=== PATIENT | male | born 1955 | race African-American/Black ===

== ENCOUNTER 2020-11-11 20:58 | Emergency (ER) | payer OTHER, SELFPAY ==
[2020-11-11 21:08] VITALS: BP 155/86; PULSE 92; RESP 18; TEMP 36.6; O2SAT 99; BMI 31.0
[2020-11-11 22:00] VITALS: PULSE 68; RESP 16; O2SAT 98
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
--- NOTE | 2020-11-11 22:56 | PC.NURSE ---
PATIENT REFUSING BLOOD WORK ASKING TO LEAVE AGAINST MEDICAL ADVICE. AMA FORM SIGNED AND WITNESSED BY THIS RN AND PROVIDER MADDY CENTENO. PATIENT STATING FEELING MUCH BETTER WITH NO DISTRESS NOTED. GERA COUGH OR SOB, OR DIZZINESS. SYMPTOMS FULLY RESOLVING. AMBULATING STEADILY.
== END 2020-11-11 23:03 | disposition left against medical advice (07) ==
PROVIDERS: Emergency Provider Emergency Medicine; PCP Internal Medicine
DX: T58.91XA Toxic effect of carbon monoxide from unspecified source, accidental (unintentional), initial encounter (principal); R06.02 Shortness of breath; X58.XXXA Exposure to other specified factors, initial encounter
CPT/HCPCS: 99282; 99284

== ENCOUNTER 2024-06-18 02:21 | Emergency (ER) | payer OTHER, SELFPAY ==
--- NOTE | ~2024-06-18 | XR_ITS ---
EXAMINATION: XR CHEST CLINICAL INFORMATION: Chest pain COMPARISON: 02/03/2017 TECHNIQUE: Frontal view of the chest was obtained. FINDINGS: The lungs are clear with no focal consolidation. No evidence of pneumothorax, pulmonary edema, or pleural effusions. Cardiac size is within normal limits. Calcification is present at the aortic arch. No acute osseous findings are seen. XR/XR chest 1V IMPRESSION: No acute cardiopulmonary findings. Electronically signed by: Antonino Manzano MD 06/18/2024 03:24 AM EDT
--- NOTE | 2024-06-18 02:25 | ECG_ITS ---
Test Reason : CP Blood Pressure : / mmHG Vent. Rate : 086 BPM Atrial Rate : 086 BPM P-R Int : 182 ms QRS Dur : 102 ms QT Int : 364 ms P-R-T Axes : 052 013 031 degrees QTc Int : 435 ms Sinus rhythm with frequent Premature ventricular complexes Possible Left atrial enlargement Minimal voltage criteria for LVH, may be normal variant ( Damaso product ) Nonspecific T wave abnormality Abnormal ECG When compared with ECG of 03-FEB-2017 02:13, Premature ventricular complexes are now Present Nonspecific T wave abnormality is now Present Referred By: Jenny Francis Electronically Signed By:MARTINE PANDEY
[2024-06-18 02:27] VITALS: BP 200/98; PULSE 93; RESP 18; TEMP 36.6; O2SAT 99; BMI 31.3
--- NOTE | 2024-06-18 02:37 | MHC.EDTECH ---
Patient brought in from triage,changed into hospital attire,EKG taken per order and signed by provider,placed patient on the workflow developer,vitals taken.
[2024-06-18 02:44] LABS: MANUAL DIFF FLAG NO
[2024-06-18 02:45] LABS: Basophils Absolute Auto 0.1 X10*3/uL (0.0-0.2); Basophils Percent Auto 0.7 % (0-2); Eosinophils Absolute Auto 0.2 X10*3/uL (0.0-0.4); Hematocrit 46.2 % (42.0-52.0); Hemoglobin 16.2 g/dl (14.0-18.0); Imm Gran Abs Auto 0.05 X10*3/uL (0.00-0.03); Imm Gran Pct Auto 0.6 % (0.0-0.4); Lymphocytes Absolute Auto 2.8 X10*3/uL (1.2-4.9); Lymphocytes Percent Auto 32.6 % (20-40); Mean Corpuscular HGB Conc 35.1 g/dl (31.0-36.0); Mean Corpuscular Hemoglobin 31.8 pg (27.0-33.0); Mean Corpuscular Volume 90.8 fL (80.0-98.0); Mean Platelet Volume 8.9 fL (9.4-12.4); Monocytes Absolute Auto 0.8 X10*3/uL (0.1-1.2); Monocytes Percent Auto 9.6 % (2-11); Neutrophils Absolute Auto 4.7 x10*3/uL (2.0-8.3); Neutrophils Percent Auto 54.5 % (45-73); Platelet Count 187 X10*3/uL (160-400); Red Blood Count 5.09 X10*6/uL (4.60-5.80); Red Cell Distribution Width 13.2 % (11.0-16.0); White Blood Count 8.6 X10*3/uL (4.8-10.8)
[2024-06-18 02:51] LABS: INTERNATIONAL NORM RATIO 0.9 (0.9-1.1); Prothrombin Time 11.1 SEC (11.1-13.3)
[2024-06-18 03:00] VITALS: BP 196/90; PULSE 83; RESP 20; O2SAT 98
[2024-06-18 03:01] VITALS: BP 189/90; PULSE 83
--- NOTE | 2024-06-18 03:02 | MHC.EDTECH ---
Patient ambulated to the bathroom with a steady gait,UDS obtained and sent to lab,patient's BP is elevated 189/90 at this time,RN is aware,call gillespie in reach
[2024-06-18 03:03] LABS: Alanine Aminotransferase 20 U/L (0-40); Alkaline Phosphatase 99 U/L (39-117); Anion Gap 16 (12-20); Aspartate Amino Transferase 22 U/L (5-37); Bilirubin Direct 0.1 mg/dL (0.0-0.5); Bilirubin Total 0.4 mg/dL (0.0-1.0); Blood Urea Nitrogen 19 mg/dL (9-16); Calcium 10.1 mg/dL (8.4-10.2); Carbon Dioxide 22 mmol/L (22-29); Chloride 108 mmol/L (96-108); Creatinine Clr Calc Pharmacy 64.5; Estimated Glomerular Filt Rate 57; Glucose Random 127 mg/dL (60-115); Potassium 4.2 mmol/L (3.3-5.1); Sodium 142 mmol/L (135-145); Total Protein 7.2 g/dL (6.5-8.0)
[2024-06-18 03:08] LABS: B Type Natriuretic Peptide 21 pg/mL (<100)
[2024-06-18 03:09] LABS: Troponin-I High Sensitivity < 2.7 ng/L (<3.5-35.0)
[2024-06-18 03:17] LABS: Ethanol 13 mg/dL
[2024-06-18 03:19] LABS: Amphetamine Screen Urine Not Detected (Not Detect); Barbiturates, Urine Not Detected (Not Detect); Benzodiazepines Screen Urine Not Detected (Not Detect); Buprenorphine Scr Not Detected (Not Detect); Cannabinoid Screen Urine Not Detected (Not Detect); Cocaine Screen Urine Not Detected (Not Detect); Fentanyl, urine Not Detected (Not Detect); Methadone Screen, Urine Not Detected (Not Detect); Opiate Screen Urine Not Detected (Not Detect); Oxycodone Screen Urine Not Detected (Not Detect); Phencyclidine Screen Urine Not Detected (Not Detect)
--- NOTE | 2024-06-18 03:40 | ED_ITS ---
HPI - Chest Pain General Chief Complaint: Chest Pain Stated Complaint: Chest Pains Time Seen by Provider: 06/18/24 03:26 Source: patient and family Mode of arrival: ambulatory Limitations: no limitations History of Present Illness ED Provider: Dr. Jenny Francis HPI narrative: Patient comes to the emergency room complaining of chest pressure that started approximately 2-1/2 hours ago. Patient states that he was sleeping a started feeling palpitations Related Data Allergies Allergy/AdvReac Type Severity Reaction Status Date / Time No Known Allergies Allergy Verified 06/18/24 02:29 [facility] Social History Social History Alcohol intake: never Smoked in Last 30 Days: No Use of substances other than those prescribed or required for medical reasons: No Advance Directives: No Advance Directives Information Provided: Yes Do you have a plan to hurt others: No Plan Physical Exam 2 Vital Signs: Vital Signs: Last Vital Signs Temp 98.7 F 06/18/24 03:42 Pulse 80 06/18/24 03:42 Resp 16 06/18/24 03:42 BP 137/84 06/18/24 03:42 Pulse Ox 98 06/18/24 03:42 O2 Del Method Room Air 06/18/24 03:42 BMI result Body Mass Index 31.3 Medications Administered Discontinued Medications Generic Name Dose Route Start Last Admin Trade Name Freq PRN Reason Stop Dose Admin Calcium Carbonate 1,500 mg 06/18/24 04:42 06/18/24 04:55 Calcium Carbonate 750 Mg Tab.Chew PO 06/18/24 04:43 1,500 mg ONCE ONE Administration Medical Decision Making Medical Decision Making [facility] Narrative: My interpretation of EKG: Normal sinus rhythm, heart rate 86, no ST segment depression or elevation, no T-wave inversion, QTC 435 -troponin x2 negative. -patient as per Tums, resolved his symptoms. -patient's pain unlikely to be of cardiac origin, probably GERD versus esophageal spasm. -patient feeling better at this time. No chest pain or pressure. 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 Differential Diagnosis Differential Diagnoses: The differential diagnosis associated with the presentation includes (As above) Admission/Observation Consideration of admission/observation: Escalation of care including admission/observation considered (Given patient's symptoms, observation was considered) Lab Data [facility] Lab Attestation statement: I reviewed the patient's lab results. 06/18/24 02:40 06/18/24 02:40 Labs: Lab Results 06/18/24 06/18/24 06/18/24 Range/Units 02:40 03:02 04:40 WBC 8.6 (4.8-10.8) X10*3/uL RBC 5.09 (4.60-5.80) X10*6/uL Hgb 16.2 (14.0-18.0) g/dl Hct 46.2 (42.0-52.0) % MCV 90.8 (80.0-98.0) fL MCH 31.8 (27.0-33.0) pg MCHC 35.1 (31.0-36.0) g/dl RDW 13.2 (11.0-16.0) % Plt Count 187 (160-400) X10*3/uL MPV 8.9 L (9.4-12.4) fL Immature Gran % (Auto) 0.6 H (0.0-0.4) % Neut % (Auto) 54.5 (45-73) % Lymph % (Auto) 32.6 (20-40) % [place] % (Auto) 9.6 (2-11) % Eos % (Auto) 2.0 (0-4) % Baso % (Auto) 0.7 (0-2) % Lymph # (Auto) 2.8 (1.2-4.9) X10*3/uL [place] # (Auto) 0.8 (0.1-1.2) X10*3/uL Eos # (Auto) 0.2 (0.0-0.4) X10*3/uL Baso # (Auto) 0.1 (0.0-0.2) X10*3/uL Abs Immat Gran (auto) 0.05 H (0.00-0.03) X10*3/uL Absolute Neuts (auto) 4.7 (2.0-8.3) x10*3/uL Absolute Nucleated RBC 0.000 (0.0-0.012) X10*3/uL Nucleated RBC % (auto) 0.0 (0.0-0.2) /100WBC PT 11.1 (11.1-13.3) SEC INR 0.9 (0.9-1.1) Sodium 142 (135-145) mmol/L Potassium 4.2 (3.3-5.1) mmol/L Chloride 108 (96-108) mmol/L Carbon Dioxide 22 (22-29) mmol/L Anion Gap 16 (12-20) BUN 19 H (9-16) mg/dL Creatinine 1.27 (0.5-1.4) mg/dL Estim Creat Clear Calc 64.5 Estimated GFR 57 Random Glucose 127 H (60-115) mg/dL Calcium 10.1 (8.4-10.2) mg/dL Magnesium 2.0 (1.6-2.6) mg/dL Total Bilirubin 0.4 (0.0-1.0) mg/dL Direct Bilirubin 0.1 (0.0-0.5) mg/dL AST 22 (5-37) U/L ALT 20 (0-40) U/L Alkaline Phosphatase 99 (39-117) U/L Troponin I High Sens < 2.7 < 2.7 (<3.5-35.0) ng/L B-Natriuretic Peptide 21 (<100) pg/mL Total Protein 7.2 (6.5-8.0) g/dL Albumin 4.0 (3.5-5.0) g/dL TSH 2.89 (0.32-4.0) uIU/mL Urine Opiates Screen Not Detected (Not Detect) Ur Buprenorphine Scrn Not Detected (Not Detect) ng/mL Ur Oxycodone Screen Not Detected (Not Detect) ng/mL Urine Methadone Screen Not Detected (Not Detect) ng/mL Urine Fentanyl Screen Not Detected (Not Detect) Ur Barbiturates Screen Not Detected (Not Detect) Ur Phencyclidine Scrn Not Detected (Not Detect) Ur Amphetamines Screen Not Detected (Not Detect) U Benzodiazepines Scrn Not Detected (Not Detect) Urine Cocaine Screen Not Detected (Not Detect) U Marijuana (THC) Screen Not Detected (Not Detect) Ethyl Alcohol 13 mg/dL Independent Interpretation I performed an independent interpretation of an: Plain X-Ray Radiology Impression Discussion of test interpretation with radiology: I have reviewed the radiologist's reading. Radiologist Impression: The lungs are clear with no focal consolidation. No evidence of pneumothorax, pulmonary edema, or pleural effusions. Cardiac size is within normal limits. Calcification is present at the aortic arch. No acute osseous findings are seen. XR/XR chest 1V IMPRESSION: No acute cardiopulmonary findings. Scores Heart Score History: -0- slightly suspicious ECG: -0- normal Age: -2- > or = 65 Risk factory: -0- no risk factors known Troponin: -0- < or = normal limit Score: 2 Risk: 1.7% Critical Care Time Critical Care Time Critical Care Time: Yes Total Critical Care Time: 45 Attestation: I have personally provided critical care time. Time includes review of lab data, radiology results, discussion with consultants, and monitoring for potential decompensation. Intervention performed as documented. Discharge Plan Discharge Clinical Impression: Atypical chest pain Patient Disposition: Home, Self-Care Instructions: Chest Pain (ED) Additional Instructions: Please follow-up with your primary care physician tomorrow. If you have any worsening or new symptoms, please return to the emergency room or call 911 Print Language: [place]
[2024-06-18 03:42] VITALS: BP 137/84; PULSE 80; RESP 16; TEMP 37.1; O2SAT 98
--- NOTE | 2024-06-18 04:15 | MHC.EDTECH ---
Hourly rounds and vitals completed,patient was given a cup of ice water per request,repeat labs will be drawn at 0440AM per providers request
[2024-06-18 04:18] LABS: TSH reflex Free T4 2.89 uIU/mL (0.32-4.0)
[2024-06-18] MEDS: Calcium Carbonate 750 MG TAB.CHEW 1500 MG PO (04:55)
--- NOTE | 2024-06-18 04:56 | PC.NURSE ---
pt states the pressure is gone, but now has heartburn'. medicated as ordered, will cont plan of care
[2024-06-18 05:06] LABS: Troponin-I High Sensitivity < 2.7 ng/L (<3.5-35.0)
[2024-06-18 05:28] VITALS: BP 139/88; PULSE 77; RESP 13; TEMP 37.1; O2SAT 98
== END 2024-06-18 05:31 | disposition home or self-care (01) ==
PROVIDERS: Emergency Provider Emergency Medicine; PCP Internal Medicine
DX: R07.89 Other chest pain (principal); R00.2 Palpitations; R06.02 Shortness of breath; R94.31 Abnormal electrocardiogram [ECG] [EKG]; Z51.81 Encounter for therapeutic drug level monitoring; Z79.899 Other long term (current) drug therapy
CPT/HCPCS: 36415; 71045; 80048; 80076; 80307; 83735; 83880; 84443; 84484; 85025; 85610; 93005; 99285